=== PATIENT | female | born 1995 | race Caucasian/White ===

== ENCOUNTER 2018-01-24 01:53 | Emergency (ER) | payer SELFPAY ==
[~2018-01-24] VITALS: Ht 154.9 cm; Wt 55.3 kg
[2018-01-24 01:59] VITALS: Ht 154.9 cm; Wt 55.3 kg
[2018-01-24 02:18] LABS: BASOPHILS 0.1 % (0-2); HEMATOCRIT 31.2 % (36.0-48.0); HEMOGLOBIN 10.4 g/dL (12-16); LYMPHOCYTES 23.1 % (15-50); MCH 29.9 pg (26.0-34.0); MCHC 33.3 g/dL (31.0-37.0); MCV 89.7 fL (80.0-100.0); MEAN PLATELET VOLUME 10.7 fL (7.4-10.4); MONOCYTES 5.2 % (2-11); NEUTROPHILS 69.6 % (40-80); PLATELET COUNT 279 10x3/uL (130-400); RBC 3.48 10x6/uL (4.00-5.40); RDW 14.1 % (11.5-14.5); WBC 14.4 10x3/uL (4.8-10.8)
[2018-01-24 02:30] LABS: ALBUMIN 2.1 g/dL (3.4-5.0); ALKALINE PHOSPHATASE 211 U/L (46-116); ALT (SGPT) 88 U/L (10-68); BILIRUBIN - TOTAL 0.51 mg/dL (0.2-1.3); CALC OSMOLALITY 267 mosm/kg (275-300); CALCIUM 8.2 mg/dL (8.5-10.1); CARBON DIOXIDE 24.2 mmol/L (21.0-32.0); CHLORIDE - SERUM 102 mmol/L (98-107); CREATININE - SERUM 0.6 mg/dL (0.6-1.3); GLUCOSE 108 mg/dL (74-106); POTASSIUM - SERUM 3.5 mmol/L (3.5-5.1); PROTEIN - SERUM 7.1 g/dL (6.4-8.2); SODIUM 135 mmol/L (136-145); UREA NITROGEN 5 mg/dL (7-18); eGFR NON AFRICAN AMERICAN > 90 mL/min (90-120)
[2018-01-24 02:39] LABS: APPEARANCE CLEAR (CLEAR); BILIRUBIN NEGATIVE (NEGATIVE); COLOR YELLOW (YELLOW); GLUCOSE 250 mg/dL (NEGATIVE); KETONE NEGATIVE (NEGATIVE); NITRITE NEGATIVE (NEGATIVE); PROTEIN NEGATIVE (NEGATIVE); UROBILINOGEN NORMAL (NORMAL)
[2018-01-24 02:52] LABS: HCG - QUANTITATIVE (MATERNAL) 71234 mIU/mL
[2018-01-24 03:56] VITALS: BP 119/69
== END 2018-01-24 03:57 | disposition home or self-care (01) ==
LOC: D.ER 01:53
PROVIDERS: Family Medicine
DX: O26.899 Other specified pregnancy related conditions, unspecified trimester (principal); Z3A.00 Weeks of gestation of pregnancy not specified; L50.9 Urticaria, unspecified; G40.909 Epilepsy, unspecified, not intractable, without status epilepticus; F17.200 Nicotine dependence, unspecified, uncomplicated